=== PATIENT | male | born 1975 | race Caucasian/White ===

== ENCOUNTER 2017-01-30 00:29 | Emergency (ER) | payer OTHER ==
[~2017-01-30] VITALS: Ht 188 cm; Wt 85.0 kg
[2017-01-30 00:31] VITALS: BP 123/88; PULSE 91; RESP 16; TEMP 97.9; O2SAT 98
[2017-01-30] MEDS ORDERED: ACETAMINOPHEN 500 MG CPLT PO ONE (01:00)
[2017-01-30] MEDS ORDERED: TETANUS/DIPHTHERIA TOXOID ADULT 0.5 ML VIAL IM ONE (01:00)
[2017-01-30] MEDS ORDERED: CYCLOBENZAPRINE HCL 10 MG TAB PO ONE (01:00)
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
[2017-01-30] MEDS ORDERED: CYCL10TA PO (02:01)
[2017-01-30] MEDS ORDERED: NAPR500 PO (02:01)
== END 2017-01-30 02:22 | disposition home or self-care (01) ==
LOC: NEPD 00:29
DX: S09.90XA Unspecified injury of head, initial encounter (principal); S16.1XXA Strain of muscle, fascia and tendon at neck level, initial encounter; M25.511 Pain in right shoulder; Z23 Encounter for immunization; V89.2XXA Person injured in unspecified motor-vehicle accident, traffic, initial encounter
CPT/HCPCS: 70450; 72125; 90471; 90714